=== PATIENT | male | born 1990 | race African-American/Black ===

== ENCOUNTER 2023-11-23 23:31 | Emergency (ER) | payer MEDICAID ==
[~2023-11-23] VITALS: Ht 193 cm; Wt 76.0 kg
[2023-11-23 23:41] VITALS: BP 119/60; TEMP 98.5; O2SAT 98
[2023-11-24] MEDS ORDERED: IBUP-2030 MT (01:27)
[2023-11-24] MEDS ORDERED: AMOX1TAB16 MT (01:27)
[2023-11-24] MEDS ORDERED: CHLO473M2 MT (01:27)
[2023-11-24 01:43] VITALS: PULSE 75; RESP 16
[2023-11-24] MEDS ORDERED: HYDROCODONE/ACETAMINOPHEN 10/325MG TABLET PO ONE (01:45)
[2023-11-24] MEDS ORDERED: IBUPROFEN 800MG TABLET PO ONE (01:45)
[2023-11-24] MEDS ORDERED: IBUPROFEN 400MG TABLET PO NR (02:00)
== END 2023-11-24 01:44 | disposition home or self-care (01) ==
LOC: ER 23:31
DX: K04.7 Periapical abscess without sinus (principal)
CPT/HCPCS: 99283

== ENCOUNTER 2025-01-20 00:22 | Emergency (ER) | payer MEDICAID ==
[~2025-01-20] VITALS: Ht 177.8 cm; Wt 106.0 kg
[~2025-01-20 00:22] MED LIST: AMOX1TAB16 MT; CHLO473M2 MT; IBUP-2030 MT
[2025-01-20 01:03] VITALS: TEMP 37.2; O2SAT 99
[2025-01-20] MEDS ORDERED: AMOX1TAB16 MT (02:08)
[2025-01-20] MEDS ORDERED: CHLO473M2 MT (02:08)
[2025-01-20] MEDS ORDERED: IBUP-2029 MT (02:08)
[2025-01-20 03:29] VITALS: BP 117/72; PULSE 76; RESP 12; O2SAT 100
== END 2025-01-20 03:33 | disposition home or self-care (01) ==
LOC: ER 00:40
DX: S02.5XXA Fracture of tooth (traumatic), initial encounter for closed fracture (principal); K04.7 Periapical abscess without sinus; Z79.899 Other long term (current) drug therapy; X58.XXXA Exposure to other specified factors, initial encounter; Y93.89 Activity, other specified; Y92.89 Other specified places as the place of occurrence of the external cause; Y99.8 Other external cause status
CPT/HCPCS: 99283